=== PATIENT | female | born 1990 | race American Indian/Alaskan Native ===

== ENCOUNTER 2019-02-21 10:49 | Emergency (ER) | payer MEDICAID, OTHER ==
[2019-02-21 11:14] VITALS: BP 112/68
--- NOTE | 2019-02-21 11:16 | Emergency Department Report ---
Chief Complaint: Adult Asthma Stated Complaint: ASTHMA Time Seen by Provider: 02/21/19 11:12 - HPI History of Present Illness: pt presents for asthma for a week no cough, no fever has been on prednisone x 4 months uses albuterol inhaler does not have a nebulizer machine lungs clear on exam, no wheezing MSE screening note: Focused history and physical exam performed. Due to findings the following was ordered: CXR ED Disposition for MSE Condition: Stable
--- NOTE | 2019-02-21 11:34 | XRay Report ---
Chest 2 views: History: Asthma. Findings: Normal cardiomediastinal silhouette. Trachea is midline. No consolidation, pneumothorax or pleural effusion. Impression: No acute cardiopulmonary findings.
[2019-02-21] MEDS ORDERED: DECADRON IV ONE (11:38)
--- NOTE | 2019-02-21 11:44 | Emergency Department Report ---
ED Asthma HPI - General Chief Complaint: Adult Asthma Stated Complaint: ASTHMA Time Seen by Provider: 02/21/19 11:12 Source: patient, EMS Mode of arrival: Wheelchair Limitations: No Limitations - History of Present Illness MD Complaint: "asthma attack" -: week(s) (1) Asthma History: childhood onset, history of frequent attac (especially during the spring. Patient has pollen as one of her triggers) Severity: moderate Context: ran out of meds, allergen exposure Associated Symptoms: dry cough. denies: fever, chest pain, hemoptysis, leg edema, syncope Treatments Prior to Arrival: other (patient received 2 nebulized treatments from EMS prior to arrival which did help her symptoms.) - Related Data Previous Rx's Medication Instructions Recorded Last Taken Type ALBUTEROL Inhaler(NF) [VENTOLIN 2 puff IH Q4HRT #1 inha 02/21/19 Unknown Rx Inhaler(NF)] Benzonatate [Tessalon Perles] 100 mg PO Q8HR #10 capsule 02/21/19 Unknown Rx Fluticasone [Flonase] 1 spray NS QDAY #1 bottle 02/21/19 Unknown Rx predniSONE [Deltasone] 20 mg PO QDAY #5 tab 02/21/19 Unknown Rx Allergies Allergy/AdvReac Type Severity Reaction Status Date / Time acetaminophen [From Vicodin] Allergy Shortness Verified 02/21/19 10:54 of Breath hydrocodone [From Vicodin] Allergy Shortness Verified 02/21/19 10:54 of Breath shellfish derived Allergy Shortness Verified 02/21/19 10:54 of Breath ED Review of Systems ROS: Stated complaint: ASTHMA Other details as noted in HPI Comment: All other systems reviewed and negative ED Past Medical Hx - Past Medical History Previous Medical History?: Yes Hx Asthma: Yes - Surgical History Past Surgical History?: No - Social History Smoking Status: Never Smoker Substance Use Type: None - Medications Home Medications: Home Medications Medication Instructions Recorded Confirmed Last Taken Type ALBUTEROL Inhaler(NF) [VENTOLIN 2 puff IH Q4HRT #1 inha 02/21/19 Unknown Rx Inhaler(NF)] Benzonatate [Tessalon Perles] 100 mg PO Q8HR #10 capsule 02/21/19 Unknown Rx Fluticasone [Flonase] 1 spray NS QDAY #1 bottle 02/21/19 Unknown Rx predniSONE [Deltasone] 20 mg PO QDAY #5 tab 02/21/19 Unknown Rx ED Physical Exam - General Limitations: No Limitations General appearance: alert, in no apparent distress - Head Head exam: Present: atraumatic, normocephalic - Eye Eye exam: Present: normal appearance - ENT ENT exam: Present: mucous membranes moist - Neck Neck exam: Present: normal inspection - Respiratory Respiratory exam: Present: normal lung sounds bilaterally. Absent: respiratory distress, wheezes, rales, rhonchi - Cardiovascular Cardiovascular Exam: Present: regular rate, normal rhythm, normal heart sounds. Absent: systolic murmur, diastolic murmur, rubs, gallop - GI/Abdominal GI/Abdominal exam: Present: soft, normal bowel sounds. Absent: distended, tenderness, guarding, rebound - Extremities Exam Extremities exam: Present: normal inspection - Back Exam Back exam: Present: normal inspection - Neurological Exam Neurological exam: Present: alert, oriented X3 - Psychiatric Psychiatric exam: Present: normal affect, normal mood - Skin Skin exam: Present: warm, dry, intact, normal color. Absent: rash ED Course Vital Signs 02/21/19 11:13 Temperature 98.3 F Pulse Rate 103 H Respiratory 20 Rate Blood Pressure 112/68 O2 Sat by Pulse 98 Oximetry ED Medical Decision Making - Medical Decision Making Patient received a neb treatment prior to arrival which she states did help her symptoms dramatically. Patient states as long as she is inside she feels fine but when she is outside she begins to wheeze and cough. Patient will be given albuterol inhaler and given a dose of Decadron and discharged a prescription of prednisone. Patient encouraged to take Claritin daily. Critical care attestation.: If time is entered above; I have spent that time in minutes in the direct care of this critically ill patient, excluding procedure time. ED Disposition Clinical Impression: Asthma exacerbation attacks Qualifiers: Asthma severity: moderate Asthma persistence: unspecified Qualified Code(s): J45.901 - Unspecified asthma with (acute) exacerbation Allergic rhinitis Qualifiers: Allergic rhinitis trigger: pollen Allergic rhinitis seasonality: seasonal Qualified Code(s): J30.1 - Allergic rhinitis due to pollen Disposition: -01 TO HOME OR SELFCARE Is pt being admited?: No Does the pt Need Aspirin: No Condition: Stable Instructions: Asthma (ED), Allergic Rhinitis (ED) Time of Disposition: 11:45
== END 2019-02-21 12:02 | disposition home or self-care (01) ==
LOC: ED 10:49
DX: J45.901 Unspecified asthma with (acute) exacerbation (principal); J30.9 Allergic rhinitis, unspecified; Z88.5 Allergy status to narcotic agent; Z91.013 Allergy to seafood
CPT/HCPCS: 71046; 96374; 99284; J1100